=== PATIENT | male | born 1985 | race Caucasian/White ===

== ENCOUNTER 2017-03-31 16:45 | Inpatient (IN) | payer OTHER ==
[~2017-03-31] VITALS: Ht 177.8 cm; Wt 78.0 kg
[2017-03-31] MEDS ORDERED: PLEASE ENTER ALLERGIES MC SCH ×2 (17:30)
[2017-03-31] MEDS ORDERED: FAMOTIDINE 20 MG/2 ML IVP ONE (17:30)
[2017-03-31] MEDS ORDERED: SODIUM CHLORIDE 0.9% 1,000ML IVBOLUS ONE ×2 (17:30→20:00)
[2017-03-31] MEDS ORDERED: ONDANSETRON 2MG/ML, 2ML IVPush ONE (17:30)
[2017-03-31] MEDS ORDERED: SODIUM CHLORIDE FLUSH 10ML SYR IVF ONE (17:30)
[2017-03-31 17:38] LABS: HEMATOCRIT 48.5 % (39.2-51.8); HEMOGLOBIN 16.8 g/dL (13.7-18.0); WHITE BLOOD COUNT 7.8 x10^3/uL (3.4-10)
[2017-03-31 17:55] LABS: ASPARTATE AMINO TRANSFERASE 34 U/L (15-37); BLOOD UREA NITROGEN 11 mg/dL (7-18)
[2017-03-31] MEDS ORDERED: ONDANSETRON 2MG/ML, 2ML ONE (18:06)
[2017-03-31] MEDS ORDERED: FAMOTIDINE 20 MG/2 ML ONE (18:06)
[2017-03-31] MEDS ORDERED: LORazepam 2 MG/ML, 1ML ONE (18:16)
[2017-03-31] MEDS ORDERED: SERT100T PO (18:23)
[2017-03-31] MEDS ORDERED: LORazepam 2 MG/ML, 1ML IVPush ONE (18:30)
[2017-03-31] MEDS ORDERED: LORazepam 2 MG/ML, 1ML IVPush PRN (19:30)
[2017-03-31] MEDS ORDERED: OXYcodone IR 5MG TABLET PO PRN (20:00)
[2017-03-31] MEDS ORDERED: PROMETHAZINE 25 MG/ML, 1ML IM PRN (20:00)
[2017-03-31] MEDS ORDERED: DOCUSATE 100 MG CAPSULE PO PRN (20:00)
[2017-03-31] MEDS ORDERED: morphine SULFATE 10 MG/ML, 1ML IVPush PRN (20:00)
[2017-03-31] MEDS ORDERED: POLYETHYLENE GLYCOL 17 GM PACKET PO PRN (20:00)
[2017-03-31] MEDS ORDERED: ACETAMINOPHEN 325 MG TABLET PO PRN (20:00)
[2017-03-31] MEDS ORDERED: ONDANSETRON 2MG/ML, 2ML IVPush PRN (20:00)
[2017-03-31] MEDS ORDERED: LORazepam 2 MG/ML, 1ML IV PRN ×3 (20:30)
[2017-03-31] MEDS ORDERED: ENALAPRILAT 1.25 MG/ML, 2ML IV PRN (20:30)
[2017-03-31] MEDS ORDERED: LABETALOL 5MG/ML, 20ML IVPush PRN (20:30)
[2017-03-31] MEDS ORDERED: hydrALAzine 20 MG/ML, 1ML IV PRN (20:30)
[2017-03-31] MEDS ORDERED: LORazepam 1MG TABLET PO PRN ×2 (20:30)
[2017-03-31] MEDS ORDERED: ENOXAPARIN 40 MG/0.4 ML SQ SCH (21:00)
[2017-03-31 21:21] LABS: PATH.CAST-FLAG NOT PRESENT; SPERM-FLAG NOT PRESENT; SRC-FLAG NOT PRESENT; XTAL-FLAG NOT PRESENT; YLC-FLAG NOT PRESENT
[2017-03-31 22:00] VITALS: BP 165/85
[2017-03-31] MEDS: LORazepam 0.5MG TABLET PO PRN (22:28)
[2017-03-31] MEDS: FAMOTIDINE 20 MG TABLET PO SCH (22:28)
[2017-03-31] MEDS: NS + 20MEQ KCL 1,000 ML IV SCH (23:02)
[2017-03-31 23:13] VITALS: BP 148/65
[2017-04-01 02:00] VITALS: BP 127/67
[2017-04-01 06:01] LABS: ASPARTATE AMINO TRANSFERASE 26 U/L (15-37); BLOOD UREA NITROGEN 8 mg/dL (7-18)
[2017-04-01] MEDS: LORazepam 0.5MG TABLET PO PRN (06:08)
[2017-04-01] MEDS: NS + 20MEQ KCL 1,000 ML IV SCH (06:08)
[2017-04-01 06:35] VITALS: BP 145/86
[2017-04-01] MEDS ORDERED: POTASSIUM PHOSPHATE 22 MEQ in SODIUM CHLORIDE 0.9% 500 ML IV ONE (08:00)
[2017-04-01] MEDS ORDERED: POTASSIUM CHLORIDE 20 MEQ TAB.ER.PRT PO ONE (08:00)
[2017-04-01] MEDS: THIAMINE 100MG TABLET PO SCH (10:16)
[2017-04-01] MEDS: MULTIVITAMIN 1 TABLET PO SCH (10:16)
[2017-04-01] MEDS: FAMOTIDINE 20 MG TABLET PO SCH ×2 (10:16→21:00)
[2017-04-01] MEDS: SERTRALINE 100MG TABLET PO SCH (10:16)
[2017-04-01] MEDS: FOLIC ACID 1 MG TABLET PO SCH (10:16)
[2017-04-01 12:33] VITALS: BP 149/86
[2017-04-01 18:48] VITALS: BP 155/97
[2017-04-01] MEDS ORDERED: ENOXAPARIN 40 MG/0.4 ML SQ SCH (21:00)
[2017-04-02 01:45] VITALS: BP 133/82
[2017-04-02 05:51] LABS: BLOOD UREA NITROGEN 9 mg/dL (7-18)
[2017-04-02 05:54] LABS: ASPARTATE AMINO TRANSFERASE 41 U/L (15-37)
[2017-04-02 07:40] VITALS: BP 136/84
[2017-04-02] MEDS: SERTRALINE 100MG TABLET PO SCH (08:19)
[2017-04-02] MEDS: THIAMINE 100MG TABLET PO SCH (08:19)
[2017-04-02] MEDS: MULTIVITAMIN 1 TABLET PO SCH (08:19)
[2017-04-02] MEDS: FOLIC ACID 1 MG TABLET PO SCH (08:19)
[2017-04-02] MEDS: FAMOTIDINE 20 MG TABLET PO SCH (08:21)
[2017-04-02] MEDS ORDERED: POTASSIUM CHLORIDE 20 MEQ TAB.ER.PRT PO ONE (09:00)
[2017-04-02] MEDS ORDERED: FOLI-17 PO (09:59)
[2017-04-02] MEDS ORDERED: THIA100T6 PO (09:59)
[2017-04-02] MEDS ORDERED: MULT1TAB60 PO (09:59)
== END 2017-04-02 12:30 | disposition home or self-care (01) | DRG 897 ==
LOC: ED 19:05 → EDIP 19:23 → SUATTDRO 19:37 → 4EST 20:29 → DCLOUNGE 04-02 11:55
PROVIDERS: ADMIT Family Medicine; ATTEND Family Medicine
DX: F10.239 Alcohol dependence with withdrawal, unspecified (principal); E87.2 Acidosis; E87.1 Hypo-osmolality and hyponatremia; E86.0 Dehydration; E87.6 Hypokalemia; F12.90 Cannabis use, unspecified, uncomplicated; F32.9 Major depressive disorder, single episode, unspecified; E83.39 Other disorders of phosphorus metabolism
CPT/HCPCS: 36415; 76700; 80053; 80307; 81001; 83690; 83735; 84100; 85025; 86850; 86900; 87324; 96361; 96374; 96375; J1650; J2405; J3480; J2060; J7030; J7040; S0028

== ENCOUNTER 2017-07-26 04:32 | Emergency (ER) | payer OTHER ==
[~2017-07-26] VITALS: Ht 175.3 cm; Wt 85.5 kg
[~2017-07-26 04:32] MED LIST: FOLI-17 PO; MULT1TAB60 PO; SERT100T PO; THIA100T6 PO
[2017-07-26] MEDS ORDERED: SODIUM CHLORIDE 0.9% 1,000 ML IV ONE (05:19)
[2017-07-26] MEDS ORDERED: THIAMINE 100MG TABLET PO ONE (05:30)
[2017-07-26] MEDS ORDERED: SODIUM CHLORIDE 0.9% 1,000ML IVBOLUS ONE ×2 (05:30→07:00)
[2017-07-26] MEDS ORDERED: THIAMINE 100MG TABLET ONE (05:36)
[2017-07-26] MEDS ORDERED: LORazepam 2 MG/ML, 1ML ONE (05:37)
[2017-07-26] MEDS: LORazepam 2 MG/ML, 1ML IVPush PRN ×3 (05:40→06:58)
[2017-07-26 06:00] LABS: BASOPHILS # (AUTO) 0.03 x10^3/uL (0-0.1); BASOPHILS % (AUTO) 1 % (0-1); EOSINOPHILS # (AUTO) 0.01 x10^3/uL (0-0.4); EOSINOPHILS % (AUTO) 0 % (1-7); LYMPHOCYTES # (AUTO) 2.79 x10^3/uL (1-3.4); LYMPHOCYTES % (AUTO) 38 % (22-44); MD NO; MEAN CORPUSCULAR HGB CONC 34.3 g/dL (33.2-36.2); MEAN CORPUSCULAR VOLUME 87.7 fL (81-97); MEAN PLATELET VOLUME 6.8 fL (7.4-10.4); MONOCYTES # (AUTO) 0.38 x10^3/uL (0.2-0.8); MONOCYTES % (AUTO) 5 % (2-9); NEUTROPHILS # (AUTO) 4.08 x10^3/uL (1.8-6.8); NEUTROPHILS % (AUTO) 56 % (42-75); PLATELET COUNT 393 x10^3/uL (130-400); RED BLOOD COUNT 5.57 x10^6/uL (4.38-5.82); RED CELL DISTRIBUTION WIDTH 13.4 % (9.4-14.8)
[2017-07-26 06:09] LABS: CHLORIDE 104 mmol/L (98-107)
[2017-07-26 06:37] LABS: ALANINE AMINOTRANSFERASE 19 U/L (12-78); ALBUMIN 4.2 g/dL (3.4-5.0); ALKALINE PHOSPHATASE 127 U/L (45-117); ANION GAP 23 mmol/L (5-15); BILIRUBIN,TOTAL 0.9 mg/dL (0.2-1.0); CALCIUM 8.4 mg/dL (8.5-10.1); CREATININE 0.86 mg/dL (0.7-1.3); TOTAL PROTEIN 7.7 g/dL (6.4-8.2)
[2017-07-26 06:51] VITALS: BP 136/77
== END 2017-07-26 08:08 | disposition home or self-care (01) ==
LOC: ED 07:21
DX: F10.220 Alcohol dependence with intoxication, uncomplicated (principal); E86.0 Dehydration
CPT/HCPCS: 36415; 80053; 80307; 83690; 85025; 96361; 96374; 96376; 99284; J2060; J7030; G0479